=== PATIENT | male | born 1985 | race Caucasian/White ===

== ENCOUNTER 2020-05-31 21:48 | Emergency (ER) | payer OTHER, SELFPAY ==
[2020-05-31 21:54] VITALS: BP 134/94; PULSE 101; RESP 20; TEMP 37.2; O2SAT 97
--- NOTE | 2020-05-31 21:59 | ED_ITS ---
HPI - Skin/Abscess/Foreign Bdy General Chief complaint: Skin/Abscess/Foreign Body Stated complaint: Thinks Spider Bite Time Seen by Provider: 05/31/20 21:50 Source: patient Mode of arrival: Ambulatory Limitations: no limitations History of Present Illness HPI narrative: 34-year-old male here for evaluation of redness to his left foot/ankle. He stated that several days ago he did have what he thought was a spider bite on the upper portion of his lower leg just below his knee. He states that a couple days ago he noticed redness around his left ankle. It is difficult for him to walk. No fevers. There has been no trauma. Has not tried anything for symptoms prior to arrival. Related Data Previous Rx's Medication Instructions Recorded cephalexin 500 mg PO QID 7 Days #28 cap 05/31/20 Allergies Allergy/AdvReac Type Severity Reaction Status Date / Time No Known Drug Allergies Allergy Unverified 05/02/20 17:50 Review of Systems Constitutional Constitutional: Denies fever(s) Musculoskeletal Musculoskeletal: Denies tingling Comments: Pain left ankle Integumentary/Breasts Comments: Redness around left foot and ankle Neurologic Neurologic: Denies tingling Hematologic/Lymphatic On Anticoagulants: No Allergic/Immunologic Allergic/Immunologic: Denies urticaria Patient History Medical History Contusion of right foot Onychomycosis Social History Smoking Status: Current every day smoker Smoking Status: Current every day smoker Exam Initial Vital Signs Initial Vital Signs: Vital Signs Temperature 98.9 F 05/31/20 21:54 Pulse Rate 101 H 05/31/20 21:54 Respiratory Rate 20 05/31/20 21:54 Blood Pressure 134/94 H 05/31/20 21:54 Pulse Oximetry 97 05/31/20 21:54 Const General: cooperative and comfortable Limitations: mental status not altered Cardio Pulses: dorsalis pedis present on the left Skin Other: Patient with redness involving the dorsum in the lateral aspect of the left foot from just proximal to his toes to just proximal of the ankle. There are no signs of abscesses. No vesicles. No pustules. Neuro Sensory Exam: no sensory deficits noted Extrem Other: Limited range of motion of the left ankle secondary to discomfort Psych Appearance: well kempt Course Orders Ordered: Discontinued Medications Cephalexin HCl (Cephalexin 250 Mg Capsule) 500 mg PO NOW ONE Stop: 05/31/20 22:01 Last Admin: 05/31/20 22:07 Dose: 500 mg Documented by: JUSTO Vital Signs Vital signs: Vital Signs - 8 hr 05/31/20 21:54 Temperature 98.9 F Pulse Rate 101 H Respiratory Rate 20 Blood Pressure 134/94 H Pulse Oximetry 97 MDM - Skin/Abscess/Foreign Bdy MDM Narrative Medical decision making narrative: Patient does have redness on the lateral aspect of the left foot and ankle consistent with cellulitis. I have low suspic ion for septic joint based on his presentation today. I do not see any breaks in the skin around this area. The small area of crusting to his left upper wilder feels less likely the source of his infection for the does seem to be the only spot where there is a break in the skin. Patient is nontoxic appearing. Was given a dose of antibiotics here in the emergency department and given a prescription for antibiotics. He was given crutches for his comfort. Was given return precautions and follow-up instructions. He expressed understanding and agreement. Discharge Plan Departure Patient Disposition: Home Clinical Impression: Cellulitis Instructions: DI for Cellulitis -- Adult Activity Restrictions/Additional Instructions: A prescription for antibiotics is electronically transmitted to [facility]. Please start taking them as directed. He can take Tylenol/ibuprofen for any discomfort. Use the crutches as needed for comfort. Return to the emergency department for any new or worsening symptoms Prescriptions: New cephalexin 500 mg capsule 500 mg PO QID 7 Days Qty: 28 RF: 0 Referrals: Al Castillo MD [Primary Care Provider] -
[2020-05-31] MEDS: cephALEXin 250 MG CAPSULE 500 MG PO (22:07)
== END 2020-05-31 22:13 | disposition home or self-care (01) ==
PROVIDERS: Emergency Provider Emergency Medicine; Family Provider Family Medicine; PCP Family Medicine
DX: L03.116 Cellulitis of left lower limb (principal)
CPT/HCPCS: 99283